=== PATIENT | female | born 1990 | race Hispanic/Latino ===

== ENCOUNTER 2018-04-22 22:14 | Emergency (ER) | payer MEDICAID | END 2018-04-22 23:22 | disposition home or self-care (01) | LOC: EDH 22:14 | DX: S92.421A Displaced fracture of distal phalanx of right great toe, initial encounter for closed fracture (principal); Z72.0 Tobacco use; W20.8XXA Other cause of strike by thrown, projected or falling object, initial encounter; Y93.89 Activity, other specified; Y92.89 Other specified places as the place of occurrence of the external cause; Y99.8 Other external cause status | CPT/HCPCS: 73620 ==

== ENCOUNTER 2018-08-25 18:52 | Emergency (ER) | payer MEDICAID ==
[2018-08-25] MEDS ORDERED: IBUPROFEN 600 MG TABLET ONE (19:41)
== END 2018-08-25 19:56 | disposition home or self-care (01) ==
LOC: EDH 18:52
DX: S93.601A Unspecified sprain of right foot, initial encounter (principal); X58.XXXA Exposure to other specified factors, initial encounter; Y93.89 Activity, other specified; Y92.89 Other specified places as the place of occurrence of the external cause; Y99.8 Other external cause status
CPT/HCPCS: 73630

== ENCOUNTER 2018-10-01 20:14 | Emergency (ER) | payer MEDICAID | END 2018-10-01 20:51 | disposition home or self-care (01) | LOC: EDH 20:14 | DX: M79.671 Pain in right foot (principal); G89.29 Other chronic pain; Z72.0 Tobacco use ==

== ENCOUNTER 2018-11-10 21:18 | Emergency (ER) | payer MEDICAID ==
[2018-11-10] MEDS ORDERED: SODIUM CHLORIDE 0.9% 1000ML 1,000 ML IV ONE (21:45)
[2018-11-10] MEDS ORDERED: ONDANSETRON HCL 4 MG/2 ML VIAL ONE (21:45)
[2018-11-10 21:47] LABS: BASOPHILS % (AUTO) 0.8 % (0.0-5.0); HEMATOCRIT 35.5 % (36-48); LYMPHOCYTES % (AUTO) 29.4 % (21.0-51.0); MEAN CORPUSCULAR HEMOGLOBIN 32.4 pg (27.0-33.0); MEAN CORPUSCULAR HGB CONC 35.1 g/dL (32.0-36.0); MEAN CORPUSCULAR VOLUME 92.3 fL (79-99); MONOCYTES % (AUTO) 8.5 % (3.0-13.0); NEUTROPHILS % (AUTO) 59.3 % (40.0-77.0); PLATELET COUNT (AUTO) 330 K/uL (130-400); RED BLOOD CELL COUNT(AUTO) 3.84 MIL/uL (4.00-5.50); RED CELL DISTRIBUTION WIDTH 13.6 % (11.0-15.5)
[2018-11-10 21:49] LABS: APPEARANCE,URINE Clear (CLEAR); BILIRUBIN,URINE Small (NEGATIVE); COLOR,URINE Dark Yellow (YELLOW); GLUCOSE, URINE (UA) Negative (NEGATIVE); KETONES,URINE Trace mg/dL (NEGATIVE); LEUKOCYTE ESTERASE ,URINE Trace (NEGATIVE); NITRATE,URINE Negative (NEGATIVE); OCCULT BLOOD,URINE Negative (NEGATIVE); PROTEIN,URINE Trace (NEGATIVE)
[2018-11-10 21:53] LABS: HCG,QUAL RESULT NEGATIVE (NEGATIVE)
[2018-11-10 21:57] LABS: CREATININE 0.9 mg/dL (0.5-1.5); POTASSIUM 3.5 mmol/L (3.5-5.1)
[2018-11-10 22:02] LABS: ALBUMIN 3.8 g/dL (3.5-5.0); BILIRUBIN,TOTAL 0.3 mg/dL (0.2-1.0); TOTAL PROTEIN, SERUM 7.4 g/dL (6.0-8.3)
[2018-11-10 22:16] LABS: RBC,URINE 0-1 /HPF (0-1)
[2018-11-10 22:17] LABS: BACTERIA,URINE Few /HPF (None Seen)
[2018-11-10 22:18] LABS: SQUAMOUS EPITHELIAL CELL,UR Few /HPF (0-2)
[2018-11-11] MEDS ORDERED: CEFTRIAXONE SODIUM 1 GM ONE (00:42)
== END 2018-11-11 01:04 | disposition home or self-care (01) ==
LOC: EDH 21:18
DX: K52.9 Noninfective gastroenteritis and colitis, unspecified (principal)
CPT/HCPCS: 36415; 74177; 80053; 81001; 81025; 83690; 85025; 96361; 96374; 96375; 99284; A4218; J0696; J2405; J7030

== ENCOUNTER 2019-01-12 18:09 | Emergency (ER) | payer MEDICAID | END 2019-01-12 19:05 | disposition home or self-care (01) | LOC: EDH 18:09 | DX: G89.29 Other chronic pain (principal); M79.671 Pain in right foot; Z87.891 Personal history of nicotine dependence | CPT/HCPCS: 99281 ==